=== PATIENT | female | born 1990 | race Caucasian/White ===

== ENCOUNTER 2016-04-25 02:21 | Inpatient (IN) ==
[~2016-04-25 02:21] MED LIST: Famotidine 20 MG/2 ML VIAL IVP PRN; Metoclopramide 10 MG/2 ML VIAL IVP PRN; Naloxone 0.4 MG/ML INJ IVP PRN
[2016-04-25] MEDS ORDERED: *HR* Nalbuphine 20 MG/ML AMPUL IVP PRN (02:23)
[2016-04-25] MEDS ORDERED: Vancomycin 1,000 MG in D5% in Water 250 ML IVPB SCH (02:25)
[2016-04-25 02:48] LABS: Basophils % 0.2 %; Eosinophils # 0.1 K/mcL (0.0-0.6); Eosinophils % 0.7 %; Hematocrit 32.1 % (35.3-44.9); Immature Granulocytes % 0.4 % (0-4); Lymphocytes # 2.1 K/mcL (0.6-4.6); Lymphocytes % 24.6 %; Mean Corpuscular HGB Conc 34.3 g/dL (31.6-35.5); Mean Corpuscular Hemoglobin 28.9 pg (28.0-33.3); Mean Corpuscular Volume 84.3 fL (83.0-100.0); Mean Platelet Volume 11.5 fL (9.4-12.4); Monocytes # 0.6 K/mcL (0.0-1.3); Neutrophils # 5.6 K/mcL (1.6-8.9); Platelet Count 148 K/mcL (140-400); Red Blood Count 3.81 M/mcL (3.82-4.97); Red Cell Distribution Width 14.1 % (11.5-14.5); Segmented Neutrophils % 67.1 %
[2016-04-25] MEDS: Ringers Solution, Lactated 1,000 ML IVC SCH ×3 (03:03→13:41)
[2016-04-25] MEDS: Vancomycin 1,250 MG in D5% in Water 250 ML IVPB SCH ×2 (03:04→15:36)
--- NOTE | 2016-04-25 08:07 | OB/GYN History & Physical ---
Date of Encounter: 04/25/16 Time of Encounter: 08:00 Assessment and Plan (1) 38 weeks gestation of Current visit: Yes Status: Acute (2) Active labor at term Current visit: Yes Status: Acute Anticipate normal spontaneous vaginal delivery (3) Artificial rupture of membranes antepartum Current visit: Yes Status: Acute (4) and not yet delivered in third trimester Current visit: No Status: Acute History of Present Illness HPI: Ms. Erickson is a 25 year old female 3 para 2 at 38 and 6 seconds weeks who presented to labor and delivery in active labor. Patient states she started [place] approximately 10 PM last night and became more regular. Patient states she was 3 cm in the office last time she was examined and was 5- 6 here in the hospital. Patient is GBS positive and penicillin allergic. Patient did give vancomycin 1 dose. Patient is trying to do this without an epidural. Patient did have an ultrasound on April 24 which placed the baby at 3570 g which was the 80th percentile with an NATHANIEL of 17. Patient states that she has delivered a 9 pound baby. She is not complaining of any headaches blurred vision scotoma. Denies any leaking of fluid. Past Med Surg Social Fam HX - Past Medical History Medical history: non-contributory Psychiatric history: no psych history - Past Surgical History Surgical History: no surgical history - Social History Smoking Status: Never smoker Smokeless Tobacco Status: No Alcohol use: none Drug use: none Occupational status: employed Current living situation: Home - Independent Recent Out of Country Travel Within the Last 8 Weeks: No Exposure or Possible Exposure to Illness During Travel: No - Family History Paternal Grandmother Living Status: Still Living Hx Family Endocrine Disorder: Yes (Diabetic) - Additional Family History Additional family history: Family history noncontributory Obstetrical History - Pregnancies : 3 Para: 2 Term: 2 Livin Medications and Allergies Ferrous Sulfate [Iron] 325 mg PO DAILY 04/25/16 [History] Vit Calc,Iron,Folic [ Vitamins] 1 each PO DAILY 04/25/16 [ History] Allergies Penicillins [PCN] Allergy (Verified 04/25/16 01:13) Rash Review of System OB All systems PM: reviewed and no additional remarkable complaints except as stated Exam - Constitutional Constitutional: well developed, well nourished, average body habitus, moderate distress - HEENT HEENT: PERRL - Neck Neck exam: full ROM - Lungs Respiratory exam: CTAB - Cardiovascular Cardiovascular exam: RRR - Abdomen Abdomen: Present: gravid - Cervix Dilation: 6 Effacement: 80 Station: -2 (Artificial rupture membranes large amount of clear fluid suggestive of polyhydramnios.) - Comments Comments: heart tones in the 140s reactive contractions every 2-4 minutes irregular. Results Result Diagrams: 04/25/16 02:38 Abnormal lab results RBC 3.81 M/mcL (3.82-4.97) L 04/25/16 02:38 Hgb 11.0 g/dL (11.5-15.4) L 04/25/16 02:38 Hct 32.1 % (35.3-44.9) L 04/25/16 02:38 All other labs normal. - VTE Reasons for not Prescribing Prophylaxis: Treatment not Indicated - Low risk for VTE
[2016-04-25] MEDS ORDERED: Oxytocin 20 units/ LR 1000 mL 20 UNIT/1,000 ML BAG IVC SCH (11:15)
[2016-04-25] MEDS ORDERED: EPHEDrine 50 MG/ML VIAL IVP PRN (11:18)
[2016-04-25] MEDS ORDERED: Ringers Solution, Lactated 500 ML IVC ONE (11:18)
[2016-04-25] MEDS ORDERED: Epidural Premix (fent/bupiv) 0 ML EP ONE (11:24)
[2016-04-25] MEDS ORDERED: Epidural Premix (fent/bupiv) 110 ML EP SCH (11:30)
[2016-04-25] MEDS ORDERED: Ringers Solution, Lactated 1,000 ML ONE (12:04)
--- NOTE | 2016-04-25 14:10 | Anesthesia Evaluation PreOp ---
Date of Encounter: 04/25/16 Time of Encounter: 11:15 - Past History Planned Operation: FARIDA Cardiac History: Denies any Significant Hx Pulmonary History: Denies Any Significant HX UNIT SUPPORT REPRESENTATIVE History: Denies Any Significant HX Other Medical History: Denies Any Significant HX Anesthesia History: No Prior Anesthetic Complications : Yes Alcohol Use: none Drug use: none Medications and Allergies Ferrous Sulfate [Iron] 325 mg PO DAILY 04/25/16 [History] Vit Calc,Iron,Folic [ Vitamins] 1 each PO DAILY 04/25/16 [ History] Allergies Penicillins [PCN] Allergy (Verified 04/25/16 01:13) Rash vancomycin Allergy (Verified 04/25/16 09:49) Rash - Meds/Allergy Pre-op Review Medications Reviewed: Yes Allergies Reviewed: Yes Beta Blockers on Current Med List: No Anesthesia Results - Labs 04/25/16 02:38 Anesthesia Exam Height: 1.7 Weight: 78.1 NPO (# of Hours): 6 Pain Scale: 8 Pain Scale Used: Numeric (1 - 10) - HEENT Pupil (Motor): Pupils equal Mallampati: II Teeth: Normal Oral Opening: Greater than 3 - UNIT SUPPORT REPRESENTATIVE LOC: Oriented UNIT SUPPORT REPRESENTATIVE Motor: Normal RUE, Normal LUE, Normal RLE, Normal LLE, Normal Face UNIT SUPPORT REPRESENTATIVE Sensory: Normal: RUE, LUE, RLE, LLE, Face - Cardiac Rhythm: Regular Murmur: None JVD: No Carotid Bruit: No - Pulmonary Breath Sounds: bilateral Clear Respiratory Effort: Symmetrical Anesthesia Assess/Plan ASA Score: 2 Modified Eamon Scale for Level of Consciousness: Cooperative, oriented, and tranquil Anesthetic Plan: General (plan b), Regional (plan a) Autologous Blood: Yes Monitoring Plan: Standard Monitors
--- NOTE | 2016-04-25 14:12 | Anesthesia Procedures ---
Date of Encounter: 04/25/16 Time of Encounter: 12:00 Procedures: Anesthesia - Epidural/Spinal Patient ID/Chart reviewed: Yes Patient examined: Yes OB Eval: Gestational age: 38.6 OB Eval: : 3 OB Eval: Hx Para: 2 OB Eval: Dilated at (cm): 7 OB Eval: Contractions: Non-stressed pattern Consent Obtained: Yes Supplemental Oxygen: None/Room Air Site Prep: Aseptic Technique, Sterile prep and drape, Povidone-Iodine 1% Patient position: upright Local Anesthetic: Lidocaine 1% Amount of Local Anesthetic used: 3 Touhy Needle Gauge: 18 Touhy Needle Depth (cm): 7 Catheter Depth at Skin (cm): 15 Test Dose (1.5% Lido + Epi): Volume given (mls): 5 Test Dose Result: Negative Loading Dose: Other: 5mls of epidural pharm bag premix Loading Dose Administered: Thru Catheter Infusion Med: 0.125% Bupivacaine w/ 2 mcg/ml Fentanyl Infusion Rate (mls/hr): 15 ([id number]) Catheter Secured in Place: Tegaderm, Tape Interspace Used: L3-L4 Loss of Resistance (YASH): Yes Blood: No CSF: No Paresthesia: No Procedure: pt tolerated procedure well. no complications. vss. 118/70 hr 98
--- NOTE | 2016-04-25 16:02 | OB Labor Progress Note ---
Date of Encounter: 04/25/16 Time of Encounter: 16:00 Labor Progress Note - Subjective Subjective: Pt comfortable with epidural - Cervix Cervix: 8-9cm per RN - Heart Tones Heart Tones: Category II, variable decelerations present. - Shafer Shafer: 1.5-4 minutes - Plan Plan: Continue pitocin augmentation. Frequent position changes. Anticipate .
[2016-04-25] MEDS ORDERED: Epidural Premix (fent/bupiv) 110 ML EP ONE (17:13)
--- NOTE | 2016-04-25 18:12 | OB/GYN Procedure Note ---
Delivery - Delivery Date: 04/25/16 Provider: Ben Schaefer Intrapartum events: none Delivery induction: none Delivery augmentation: rupture of membranes, pitocin Delivery monitor: external FHT, external uterine, internal FHT Anesthesia: epidural Estimated Blood Loss: 200 - (s) A Infant Delivery Date: 04/25/16 Infant Delivery Time: 17:46 Presentation: vertex Position: OA Route of delivery: Gender: Male Viability: Viable Pounds: 8 Ounces: 6 Weight Gram: 3.795 kg at 1 minute: 8 at 5 mins: 9 Shoulder Dystocia: not encountered Specimens collected: cord blood Placenta: spontaneous Cord: 3 umbilical vessels - Repair Episiotomy: none Laceration Description: Superficial (perineal) - Complications Delivery complications: none Delivery comments: Patient is a 25-year-old 3 para 2 at 38 and 6 since week she had presented to labor and delivery in active labor. Patient started [place] partially 2200 last night came to the hospital middle of night. Patient progressed appropriately on her own patient was GBS positive was given vancomycin. Patient did receive an epidural contractions had spaced out did need to be augmented with Pitocin. Once patient was complete patient pushed for a short period of time delivering a viable male infant in occiput anterior presentation at 1746. There was no nuchal cord and meconium infant was bulb suctioned on the abdomen Apgars were 8 at 1 minute and 9 at 5 minutes weight was 8 lbs. 6 oz. 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 Patient has superficial perineal laceration repaired with 3-0 Vicryl in usual fashion cervix and vagina was visualized intact. Patient's uterus was explored there was a little bit of retained membranes were removed. All needles lap sponge counts were correct 3 patient tolerated the delivery well. She will be observed 2 hours before being taken floor. - Disposition Mom disposition: stable in LDR disposition: stable in LDR
[2016-04-25] MEDS ORDERED: Oxytocin 20 units/ LR 1000 mL 20 UNIT/1,000 ML BAG IV SCH (20:19)
[2016-04-25] MEDS ORDERED: Acetaminophen 325 MG TABLET PO PRN (20:19)
[2016-04-25] MEDS ORDERED: Measles/Mumps/Rubella Vacc 0.5 ML VIAL SQ PRN (20:19)
[2016-04-25] MEDS ORDERED: Oxytocin 20 units/ LR 1000 mL 20 UNIT/1,000 ML BAG IVC ONE (20:19)
[2016-04-25] MEDS ORDERED: Rho Immune Globulin 1,500 UNIT SYRINGE IM PRN (20:19)
[2016-04-25] MEDS: Ibuprofen 600 MG TABLET PO PRN (20:38)
[2016-04-26] MEDS: Ibuprofen 600 MG TABLET PO PRN ×2 (03:06→16:07)
[2016-04-26 06:51] LABS: Basophils % 0.2 %; Eosinophils # 0.1 K/mcL (0.0-0.6); Eosinophils % 1.1 %; Hematocrit 29.2 % (35.3-44.9); Immature Granulocytes % 0.4 % (0-4); Lymphocytes # 2.1 K/mcL (0.6-4.6); Lymphocytes % 25.5 %; Mean Corpuscular HGB Conc 34.2 g/dL (31.6-35.5); Mean Corpuscular Hemoglobin 29.2 pg (28.0-33.3); Mean Corpuscular Volume 85.1 fL (83.0-100.0); Mean Platelet Volume 11.6 fL (9.4-12.4); Monocytes # 0.6 K/mcL (0.0-1.3); Monocytes % 7.7 %; Neutrophils # 5.5 K/mcL (1.6-8.9); Platelet Count 136 K/mcL (140-400); Red Blood Count 3.43 M/mcL (3.82-4.97); Red Cell Distribution Width 14.1 % (11.5-14.5); Segmented Neutrophils % 65.1 %
[2016-04-26] MEDS ORDERED: Prenatal Vit/FA 1 EACH TABLET PO SCH ×2 (09:00)
--- NOTE | 2016-04-26 09:17 | Discharge Summary ---
Date of Encounter: 04/26/16 Time of Encounter: 09:15 - Discharge Diagnosis (1) (normal spontaneous vaginal delivery) Priority: Primary Status: Acute Comments: Pt meeting milestones. - Discharge Medications Prescriptions: Ibuprofen [Motrin] 600 mg PO Q6HR PRN #60 tablet PRN Reason: Cramping Docusate [Colace] 100 mg PO BID #60 capsule Home Medications: Vit Calc,Iron,Folic [ Vitamins] 1 each PO DAILY 04/25/16 [ History] Docusate [Colace] 100 mg PO BID #60 capsule 04/26/16 [Rx] Ibuprofen [Motrin] 600 mg PO Q6HR PRN #60 tablet 04/26/16 [Rx] Allergies/Adverse Reactions: Allergies Penicillins [PCN] Allergy (Verified 04/25/16 01:13) Rash vancomycin Allergy (Verified 04/25/16 09:49) Rash Data Procedures and tests throughout hospitalization: Laboratory Tests 04/25/16 04/26/16 02:38 06:09 WBC 8.4 8.4 RBC 3.81 L 3.43 L Hgb 11.0 L 10.0 L Hct 32.1 L 29.2 L MCV 84.3 85.1 MCH 28.9 29.2 MCHC 34.3 34.2 RDW 14.1 14.1 Plt Count 148 136 L MPV 11.5 11.6 Immature Gran % 0.4 0.4 Seg Neutrophils % 67.1 65.1 Lymphocytes % 24.6 25.5 Monocytes % 7.0 7.7 Eosinophils % 0.7 1.1 Basophils % 0.2 0.2 Neutrophils # 5.6 5.5 Lymphocytes # 2.1 2.1 Monocytes # 0.6 0.6 Eosinophils # 0.1 0.1 Basophils # 0.0 0.0 Labs on day of discharge: Labs from last 24 hours 04/26/16 06:09 WBC 8.4 RBC 3.43 L Hgb 10.0 L Hct 29.2 L MCV 85.1 MCH 29.2 MCHC 34.2 RDW 14.1 Plt Count 136 L MPV 11.6 Immature Gran % 0.4 Seg Neutrophils % 65.1 Lymphocytes % 25.5 Monocytes % 7.7 Eosinophils % 1.1 Basophils % 0.2 Neutrophils # 5.5 Lymphocytes # 2.1 Monocytes # 0.6 Eosinophils # 0.1 Basophils # 0.0 Date of admission: 04/25/16 02:21 Primary care physician: PCP NO Consults: 04/25/16 20:19 Consult to Supervisor [place] [CONS] Routine Comment: Vaginal delivery, consult needed Discharging clinician: Zohreh Fernandez Anticipated date of discharge: 04/26/16 - Patient Status Disposition: Home, Self-Care Condition: Good Functional capacity at discharge: independent ambulation Overall status at discharge: patient is progressing back to baseline - Discharge Instructions Follow Up With: NO,PCP [Primary Care Provider] - Misael Paniagua MD [Partnered Physician] - - Diet and Activity Activity: increase activity as tolerated Diet: advance to your usual diet Hospital Course Reason for admission: active labor Episiotomy: none Laceration: other (superficial perineal) Other procedures: none complications: none Discharge diagnosis: IUP at term delivered baby: male Hospital course: Delivery Date: 04/25/16 Provider: Ben Schaefer Intrapartum events: none Delivery induction: none Delivery augmentation: rupture of membranes, pitocin Delivery monitor: external FHT, external uterine, internal FHT Anesthesia: epidural Estimated Blood Loss: 200 - Infant (s) Infant A Delivery Date: 04/25/16 Delivery Time: 17:46 Presentation: vertex Position: OA Route of delivery: Gender: Male Viability: Viable Pounds: 8 Ounces: 6 Weight Gram: 3.795 kg at 1 minute: 8 at 5 mins: 9 Shoulder Dystocia: not encountered Specimens collected: cord blood Placenta: spontaneous Cord: 3 umbilical vessels - Repair Episiotomy: none Laceration Description: Superficial (perineal) - Complications Delivery complications: none - Disposition Mom disposition: home PPD#1 Staples disposition: home with mother, Time Attestation: Total time spent providing and/or coordinating discharge services: Time Spent: Less than 30 minutes Exam - Constitutional Vitals: Temp Pulse Resp BP Pulse Ox 98.7 F 83 16 105/61 97 04/26/16 03:00 04/26/16 03:00 04/26/16 03:00 04/26/16 03:00 04/26/16 03:00 General appearance IM: A&O X 3, pleasant, no acute distress - Respiratory Respiratory exam: Present: CTAB - Cardiovascular Cardiovascular exam IM: Present: RRR, +S1, +S2 - GI/Abdominal GI/Abdominal exam IM: soft, no peritoneal signs - Rectal Rectal exam: deferred - External exam: normal external exam Uterine Tone: Firm Uterus Position: 1 Finger Below Umbilicus - Extremities Exam Extremities exam IM: Present: normal inspection - Neurological Exam Neurological exam: normal gait, oriented X3 - Psychiatric Additional comments: reports good mood
[2016-04-26 09:19] VITALS: BP 112/79
[2016-04-26] MEDS ORDERED: Aminoglycoside Consult 1 EACH MC ONE (19:59)
== END 2016-04-26 20:00 | disposition home or self-care (01) | DRG 775 ==
LOC: 1NENULAB → 1NENUOBS 20:28
PROVIDERS: ADMIT Obstetrics & Gynecology; ATTEND Obstetrics & Gynecology